=== PATIENT | female | born 1955 | race Caucasian/White ===

== ENCOUNTER 2016-10-31 11:41 | Emergency (ER) | payer OTHER ==
[~2016-10-31] VITALS: Ht 149.9 cm; Wt 39.0 kg
[~2016-10-31 11:41] MED LIST: CODE118S2 PO; METF500T PO
[2016-10-31 11:50] VITALS: BP 115/67
--- NOTE | 2016-10-31 12:09 | NUR ---
Patient ambulated to bed 4 with family. RN evaluating patient at bedside.
--- NOTE | 2016-10-31 12:37 | NUR ---
Dr. Hall evaluating patient at bedside.
[2016-10-31 13:29] LABS: CARBON DIOXIDE 26.1 mmol/L (21-32); CREATININE 0.5 mg/dL (0.6-1.3); POTASSIUM 4.1 mmol/L (3.5-5.1)
--- NOTE | 2016-10-31 13:33 | NUR ---
Concur with triage assessment. Patient seen and evaluated by JULIANNA THOMPSON completed. Diagnostic testing initiated, transported to CT via gurney accompanied by diagnostic technologist.
[2016-10-31 13:36] LABS: ALBUMIN 3.1 g/dL (3.4-5.0); HEMATOCRIT 32.9 % (36-48); HEMOGLOBIN 10.4 g/dL (12.0-16.0); MEAN CORPUSCULAR HEMOGLOBIN 25 pg (27-31); MEAN CORPUSCULAR HGB CONC 32 g/dL (33-37); MEAN CORPUSCULAR VOLUME 79 fL (80-94); PLATELET COUNT (AUTO) 204 K/uL (140-450); RED BLOOD CELL COUNT(AUTO) 4.17 MIL/uL (4.20-5.40); RED CELL DISTRIBUTION WIDTH 13.1 % (11.6-13.7); TOTAL BILIRUBIN 0.3 mg/dL (0.0-1.0); WHITE BLOOD COUNT (AUTO) 4.8 K/uL (4.8-10.8)
[2016-10-31 13:40] LABS: AMYLASE 45 U/L (25-115); LIPASE 234 U/L (73-393)
[2016-10-31 13:46] LABS: BASOPHILS % (MANUAL) 0 % (0-2); EOSINOPHILS % (MANUAL) 1 % (0-4); LYMPHOCYTES % (MANUAL) 39 % (20-46); MONOCYTES % (MANUAL) 6 % (5-12)
[2016-10-31 13:51] LABS: PROTHROMBIN TIME 10.4 secs (10.8-13.4)
[2016-10-31 15:18] VITALS: BP 93/59
[2016-10-31] MEDS ORDERED: IBUPROFEN 800 MG TAB PO ONE (15:30)
--- NOTE | 2016-10-31 15:48 | NUR ---
Patient discharged with v/s stable. Written and verbal after care instructions given and explained. Patient alert, oriented and verbalized understanding of instructions. Ambulatory with steady gait. All questions addressed prior to discharge. ID band removed. Patient advised to follow up with PMD. Rx of Motrin given. Patient educated on indication of medication including possible reaction and side effects. Opportunity to ask questions provided and answered. Patient seemingly unsatisfied with care, demanding that her TSH levels be drawn, but is not part of orders for her presenting complaints. Aftercare instructions given accordingly.
== END 2016-10-31 15:48 | disposition home or self-care (01) ==
LOC: MED 11:41
DX: R10.84 Generalized abdominal pain (principal); E11.9 Type 2 diabetes mellitus without complications; I10 Essential (primary) hypertension; Z88.1 Allergy status to other antibiotic agents
CPT/HCPCS: 36415; 71010; 74176; 80053; 81002; 82150; 83036; 83690; 83880; 84443; 84484; 85025; 85610; 85730; 93005; 99285; Q0092

== ENCOUNTER 2018-02-14 04:55 | Emergency (ER) | payer OTHER ==
[~2018-02-14] VITALS: Ht 149.9 cm; Wt 43.1 kg
[2018-02-14 04:58] VITALS: BP 133/68
--- NOTE | 2018-02-14 05:08 | NUR ---
TO ER BED 4
--- NOTE | 2018-02-14 05:09 | NUR ---
PT PRESENTED ER WITH C/O CHEST PAIN X 1 DAY. PT STATED SHE HAS CHEST PAIN AND RADIATES TO THE ABDOMEN. PT DENIES N/V/D. PT STATED SHE HAS CONSTIPATION. LAST BM WAS LAST NIGHT. PT IS A/O X 4. FAMILY AT BEDSIDE.SKIN IS PINK/WARM/DRY; EVEN AND STEADY GAIT; LUNGS CLEAR BL; HR EVEN AND REGULAR; PT DENIES ANY FEVER AT THIS TIME; VSS; PATIENT POSITIONED FOR COMFORT; HOB ELEVATED; BEDRAILS UP X2; BED DOWN. ER MD MADE AWARE OF PT STATUS.
[2018-02-14] MEDS ORDERED: ASPIRIN 81 MG TAB.CHEW PO ONE (05:40)
[2018-02-14] MEDS ORDERED: NACL 0.9% 1,000 ML IV ONE (05:40)
[2018-02-14 06:07] LABS: BASOPHILS % (AUTO) 0.3 % (0.0-2.0); EOSINOPHILS # (AUTO) 0.2 K/uL (0-0.4); EOSINOPHILS % (AUTO) 3.3 % (0.0-4.0); HEMATOCRIT 33.5 % (36-48); HEMOGLOBIN 10.6 g/dL (12.0-16.0); LYMPHOCYTES # (AUTO) 2.5 K/uL (2.5-16.5); LYMPHOCYTES % (AUTO) 46.5 % (20.5-51.1); MEAN CORPUSCULAR HEMOGLOBIN 25 pg (27-31); MEAN CORPUSCULAR HGB CONC 32 g/dL (33-37); MEAN CORPUSCULAR VOLUME 79.2 fL (80-94); MONOCYTES # (AUTO) 0.5 K/uL (0.8-1.0); NEUTROPHILS # (AUTO) 2.2 K/uL (1.8-7.7); NEUTROPHILS % (AUTO) 40.9 % (42.2-75.2); PLATELET COUNT (AUTO) 226 K/uL (140-450); RED BLOOD CELL COUNT(AUTO) 4.23 MIL/uL (4.20-5.40); RED CELL DISTRIBUTION WIDTH 13.4 % (11.6-13.7); WHITE BLOOD COUNT (AUTO) 5.4 K/uL (4.8-10.8)
[2018-02-14 06:14] LABS: POTASSIUM 4.1 mmol/L (3.5-5.1)
[2018-02-14 06:15] LABS: ANION GAP 15.3 (8-16); CARBON DIOXIDE 27.8 mmol/L (21-32); CREATININE 0.6 mg/dL (0.6-1.3)
[2018-02-14 06:17] LABS: TOTAL BILIRUBIN 0.3 mg/dL (0.0-1.0)
[2018-02-14 06:18] LABS: ALBUMIN 3.3 g/dL (3.4-5.0)
[2018-02-14] MEDS ORDERED: NITROGLYCERIN 0.4 MG TAB SL ONE (06:20)
--- NOTE | 2018-02-14 06:26 | NUR ---
PT LAYING IN BED, RR EVEN AND UNLABORED. PT DENIES ANY CP, SOB OR N/V AT THIS TIME. PT REFUSED NITRO SL. ER MADE AWARE. ALL NEEDS MET.
[2018-02-14 06:47] LABS: APPEARANCE,URINE CLEAR (CLEAR); BILIRUBIN,URINE NEGATIVE (NEGATIVE); BLOOD, URINE TRACE-L (NEGATIVE); COLOR,URINE YELLOW (YELLOW); LEUKOCYTE ESTERASE ,URINE NEGATIVE (NEGATIVE); NITRITE, URINE NEGATIVE (NEGATIVE); UGLUCOSE NEGATIVE (NEGATIVE)
--- NOTE | 2018-02-14 06:56 | NUR ---
Wendy ramos in [facility] - 02/14/18 at 0657 by SCOOBY pt is sleeping in bed, vitals stable
--- NOTE | 2018-02-14 06:57 | NUR ---
pt sleeping in bed, vitals stable. family at bedside.
[2018-02-14 06:59] LABS: RBC,URINE 3-10 (FEW) /HPF (0-5); WBC,URINE 0-5 (RARE) /HPF (0-5)
--- NOTE | 2018-02-14 07:08 | NUR ---
gave report to minnie contreras. vss
--- NOTE | 2018-02-14 07:08 | NUR ---
RECIEVED REPORT FROM FLOAT REMOVER CHARLOTTE NAVARRO REGARDING PATIENT TREATMENT PLAN. WILL FOLLOW UP. VSS.
[2018-02-14] MEDS ORDERED: PANTOPRAZOLE 40 MG INJ VIAL IVP ONE (07:20)
[2018-02-14] MEDS ORDERED: ALUMINUM HYD/MAG/SIMETHICONE 30 ML UDC PO ONE (07:20)
--- NOTE | 2018-02-14 07:38 | NUR ---
PATIENTS BP DROPPING CURRENTLY AT 89/42. DR MARION MADE AWARE. 500 ML BOLUS GIVEN PER DR MARION ORDERS.
--- NOTE | 2018-02-14 09:15 | NUR ---
PATIENT STATES SHE FEELS MUCH BETTER AND DENIES ANY PAIN OR DISCOMFORT AT THIS TIME.
[2018-02-14 09:33] LABS: AMYLASE 46 U/L (25-115); LIPASE 246 U/L (73-393)
--- NOTE | 2018-02-14 10:01 | NUR ---
DR MARION AT BEDSIDE.
--- NOTE | 2018-02-14 10:22 | NUR ---
Patient discharged with v/s stable. Written and verbal after care instructions given and explained. STATES SHE HAS AN APPOINTMENT WITH HER PCP TODAY ADVISED TO RETURN TO HOSPITAL IF SYMPTOMS RETURN OR WORSEN. Patient alert, oriented and verbalized understanding of instructions. Ambulatory with steady gait. All questions addressed prior to discharge. ID band removed. Patient advised to follow up with PMD. Rx of ASPIRIN given. Patient educated on indication of medication including possible reaction and side effects. Opportunity to ask questions provided and answered.
[2018-02-14 10:24] VITALS: BP 128/56
== END 2018-02-14 10:22 | disposition home or self-care (01) ==
LOC: MED 04:55
DX: R07.89 Other chest pain (principal); R10.30 Lower abdominal pain, unspecified; E11.9 Type 2 diabetes mellitus without complications; I10 Essential (primary) hypertension; Z88.1 Allergy status to other antibiotic agents; Z79.84 Long term (current) use of oral hypoglycemic drugs
CPT/HCPCS: 36415; 71045; 80053; 81001; 82150; 83690; 84484; 84703; 85025; 85610; 85730; 93005; 96374; 99284; C9113; J7030; Q0092